=== PATIENT | male | born 1945 | race Caucasian/White ===

== ENCOUNTER 2021-02-09 09:20 | Emergency (ER) | payer MEDICARE, OTHER, SELFPAY ==
[2021-02-09 09:41] VITALS: TEMP 36.4; BMI 27.2
[2021-02-09 09:46] VITALS: BP 195/110; PULSE 60; RESP 16; O2SAT 93
--- NOTE | 2021-02-09 09:55 | W.ED.WOUNDLC ---
HPI - Wound/Laceration General: Chief Complaint: Wound/Laceration Stated Complaint: L ARM WOUND/LACERATION Time Seen by Provider: 02/09/21 09:28 History of Present Illness: HPI narrative: Patient is a 75-year-old male comes to the ED with a laceration on left arm. Patient says he was in his garage cleaning up some debris. He was trying to remove a bent metal track for her garage door and once he loosened one of the screws the metal track sprung up and hit patient in left forearm causing laceration. Patient unsure of last tetanus shot. Associated symptoms: Denies chills, fever(s), nausea or vomiting Review of Systems Const: Denies: fever(s), chills or fatigue Eyes: Denies: change in vision or eye discomfort ENMT: Denies: throat pain, odynophagia, nasal discharge or nasal congestion Card: Denies: chest pain, palpitations, edema, swelling of feet/ankles, dyspnea on exertion or orthopnea Resp: Denies: dyspnea, productive cough or non-productive cough GI: Denies: abdominal pain, nausea, vomiting, diarrhea, constipation or hematochezia : Denies: flank pain, difficulty urinating, dysuria or hematuria Musc: Denies: neck pain, back pain or extremity swelling Skin/Breast: Reports: new lesions (laceration to left arm); Denies: rash Neuro: Denies: headache(s), numbness in extremities or weakness in extremities [facility] PFSH: Medical History Erectile dysfunction Family history of prostate cancer HTN (hypertension) Family History Father Cancer PROSTATE CANCER Mother Diabetes Hypertension Social History Smoking and tobacco status: never smoked Alcohol intake: current Alcohol intake frequency: holidays/special occasions only Adopted: No Caregiver/support person: No Lives independently: No Household members: spouse Marital status: Current occupational status: retired Physical Exam Const: COMMON NORMALS: no acute distress, patient oriented x3, healthy appearing and alert GENERAL APPEARANCE: cooperative and comfortable HENMT: COMMON NORMALS: normocephalic HEAD & SCALP: normocephalic MOUTH: Normal oral and palatal mucosa present THROAT: posterior oropharynx normal and uvula midline Neck/C-Spine: COMMON NORMALS: supple GENERAL: Yes normal visual inspection Resp: COMMON NORMALS: normal respiratory effort, No retractions, No use of accessory muscles and clear to auscultation bilaterally AUSCULTATION: clear to auscultation bilaterally Cardio: COMMON NORMALS: regular rate, regular rhythm, S1 normal heart sound present, S2 normal heart sound present, No gallops present (Cardio), No clicks present (Cardio), No murmurs present (Cardio) and Peripheral pulses 2+ throughout RATE: regular rate RHYTHM: regular rhythm HEART SOUNDS: S1 normal heart sound present and S2 normal heart sound present PERIPHERAL PULSES: Peripheral pulses 2+ throughout GI: COMMON NORMALS: Normal to inspection, nondistended, normoactive bowel sounds present, Soft to palpation, non-tender and no masses PALPATION: Yes Soft to palpation : COMMON NORMALS: Yes no CVA tenderness BLADDER/KIDNEY EXAM: Yes no CVA tenderness Back/Pelvis: COMMON NORMALS: no CVA tenderness Extremity: NARRATIVE EXTREMITY EXAM: Laceration on left forearm?superficial 10 cm linear laceration on anterior aspect of forearm. Minimal active bleeding. Noncontaminated. GENERAL: Yes normal exam except as noted Neuro: COMMON NORMALS: patient oriented x3 and moves all extremities SENSORIUM/ORIENTATION: Yes alert Skin: NARRATIVE SKIN EXAM: Laceration on left forearm?superficial 10 cm linear laceration on anterior aspect of forearm. Minimal active bleeding. Noncontaminated. GENERAL SKIN EXAM: dry skin Procedures Laceration Laceration 1: Site: upper extremity (forearm) Side (If applicable): left Size (cm): 10 Description: linear and clean Depth: simple, single layer Local Anesthetic: lidocaine 1% and with epi Amount of anesthesia used (mL): 20 Pre-repair: irrigated extensively (With normal saline and cleaned with CHG swab.) Skin layer closed with: vicryl Size (cm): 4-0 (10 vicryl sutures) and 5-0 (10 ethicon sutures) Number of sutures: 20 Technique: simple, interrupted Course Vital Signs: Vital signs: Vital Signs Temperature 97.5 F L 02/09/21 09:41 Pulse Rate 60 02/09/21 09:46 Respiratory Rate 18 02/09/21 11:44 Blood Pressure 195/110 02/09/21 09:46 Pulse Oximetry 93 04/30/21 09:46 MDM - Wound/Laceration MDM Narrative: Medical decision making narrative: Patient is a 75-year-old male who comes to the ED with laceration to forearm. Laceration was irrigated extensively with normal saline and then skin was cleaned with CHG swab. Lidocaine 1% with epi was used as local. 20 sutures were then used to close up laceration. Patient was given updated tetanus shot and then laceration site was bandaged up and he was sent home with a prophylactic prescription of cephalexin. He was instructed on laceration care. Follow-up in 10 days to have sutures removed. Return to ED precautions given. Patient understood and agree with plan. Discharge Plan Discharge Patient Disposition: Home Clinical Impression: Laceration Condition: Stable Prescriptions: New cephalexin 500 mg capsule 500 mg PO Q6H 3 Days Qty: 12 RF: 0 No Action losartan 25 mg tablet 12.5 mg PO DAILY RF: 0 magnesium 200 mg tablet 200 mg PO DAILY RF: 0 flaxseed oil 1,000 mg capsule 1,000 mg PO DAILY RF: 0 red yeast rice 600 mg tablet 600 mg PO DAILY RF: 0 omega-3 fatty acids [Fish Oil Concentrate] 1,000 mg capsule 1,000 mg PO DAILY RF: 0 Discharge Orders: Discharge ED (Routine); Ordered 02/09/21 Ordered By: Dragan Quiroz Referrals: Cesar Day DO [Primary Care Provider] - Discharge Diet: Regular Discharge Activity: Limit activity as instructed Patient Instructions: Suture Care (ED), Laceration (ED) Activity Restrictions/Additional Instructions: Take full course of antibiotics as prescribed. Keep laceration site clean and dry for the next 48 hours. Then after that you can clean and re-bandage daily. Watch for signs of infection such as redness, warmth, increased tenderness and puslike drainage. If you see the signs of infection return to the ED, urgent care or PCP for reevaluation. call your PCP to schedule a follow-up appointment for reevaluation and suture removal in about 10 days. Continue taking all home meds. Follow discharge plans as discussed. You can return to the ED if symptoms worsen. Coding Level of Care Code ED Speedometer Inspector for Marielena Fwd Exam Comprehensive
[2021-02-09 11:44] VITALS: RESP 18
[2021-02-09] MEDS: tetanus-dipt-pertussis 0.5 mL SDV IM (12:16)
== END 2021-02-09 12:23 | disposition home or self-care (01) ==
PROVIDERS: Emergency Provider Physician Assistant; PCP Family Medicine
DX: S51.812A Laceration without foreign body of left forearm, initial encounter (principal); W22.8XXA Striking against or struck by other objects, initial encounter; I10 Essential (primary) hypertension; Z23 Encounter for immunization
CPT/HCPCS: 12004; 90471; 90715; 99283

== ENCOUNTER → 2022-03-27 13:21 | Outpatient (BNVA) | payer MEDICARE, OTHER, SELFPAY | PROVIDERS: PCP Family Medicine; Visit Provider Family Medicine | DX: Z00.00 Encounter for general adult medical examination without abnormal findings (principal); E78.5 Hyperlipidemia, unspecified; E53.8 Deficiency of other specified B group vitamins; E11.9 Type 2 diabetes mellitus without complications; E03.8 Other specified hypothyroidism; M10.9 Gout, unspecified | CPT/HCPCS: 80053; 80061; 82607; 83036; 84443; 84550; 85025 ==

== ENCOUNTER 2022-07-22 11:03 | Outpatient (CLI) | payer MEDICARE, OTHER, SELFPAY | END 2022-07-22 11:04 | disposition home or self-care (01) | LOC: LAB 11:08 | PROVIDERS: PCP Family Medicine; Visit Provider Urology | DX: Z12.5 Encounter for screening for malignant neoplasm of prostate (principal) | CPT/HCPCS: 36415; G0103 ==

== ENCOUNTER → 2022-07-30 08:40 | Outpatient (BNVA) | payer MEDICARE, OTHER, SELFPAY | PROVIDERS: PCP Family Medicine; Visit Provider Urology | DX: N40.1 Benign prostatic hyperplasia with lower urinary tract symptoms (principal); Z12.5 Encounter for screening for malignant neoplasm of prostate; Z80.42 Family history of malignant neoplasm of prostate | CPT/HCPCS: 81003; 99213 ==

== ENCOUNTER → 2023-04-21 09:25 | Outpatient (BNVA) | payer MEDICARE, OTHER, SELFPAY | PROVIDERS: PCP Family Medicine; Visit Provider Family Medicine | DX: Z00.00 Encounter for general adult medical examination without abnormal findings (principal); H91.92 Unspecified hearing loss, left ear; I10 Essential (primary) hypertension; E03.9 Hypothyroidism, unspecified | CPT/HCPCS: 80053; 80061; 82607; 84443; 85025 ==

== ENCOUNTER → 2024-04-22 08:40 | Outpatient (BNVA) | payer MEDICARE, OTHER, SELFPAY | PROVIDERS: PCP Family Medicine; Visit Provider Family Medicine | DX: Z00.00 Encounter for general adult medical examination without abnormal findings (principal); Z12.5 Encounter for screening for malignant neoplasm of prostate; I10 Essential (primary) hypertension; E55.9 Vitamin D deficiency, unspecified; E03.9 Hypothyroidism, unspecified; N40.1 Benign prostatic hyperplasia with lower urinary tract symptoms; H91.92 Unspecified hearing loss, left ear | CPT/HCPCS: 80053; 80061; 82607; 82652; 84153; 84443; 85025 ==

== ENCOUNTER 2024-05-13 08:55 | Outpatient (CLI) | payer MEDICARE, OTHER, SELFPAY ==
--- NOTE | 2024-05-13 09:15 | USCV_ITS ---
Geronimo De La Rosa Age: 78 Gender: M : 1945 Exam Date: 05/13/2024 09:05 Ordering Phys: Cesar Day DO Technologist: Exam Location: [facility] Indication: murmur BP: 130 / 80 HR: 64 Rhythm: Sinus Technical Quality: Adequate MEASUREMENTS (Male / Female) Normal Values 2D ECHO LV Diastolic Diameter PLAX 5.0 cm 4.2 - 5.9 / 3.9 - 5.3 cm IVS Diastolic Thickness 1.2 cm 0.6 - 1.0 / 0.6 - 0.9 cm IVS Systolic Thickness 1.8 cm LVPW Diastolic Thickness 1.3 cm 0.6 - 1.0 / 0.6 - 0.9 cm LVPW Systolic Thickness 2.0 cm LVOT Diameter 2.1 cm LV Ejection Fraction 2D Teich 64.0 % LV Ejection Fraction MOD 4C 70.3 % LV Ejection Fraction MOD 2C 57.3 % LV Ejection Fraction 2C AL 56.5 % LA Diameter 3.6 cm RA Systolic Volume 4C AL 86.4 ml RA Systolic Volume 4C MOD 84.0 ml LA Sys Volume AL 81.5 cm cubed LA Sys Volume Index AL 39.2 cm cubed/m squared Aorta at Sinotubular Diameter 2.7 cm IVC Diameter 2.3 cm M-MODE LA Ao Ratio MM 1.1 AV Cusp Separation MM 2.9 cm DOPPLER AV Peak Velocity 173.0 cm/s LVOT Peak Velocity 101.0 cm/s AV Area Cont Eq vti 1.9 cm squared AV Area Cont Eq pk 1.9 cm squared MV Area PHT 3.2 cm squared Mitral E to A Ratio 0.8 TV Peak Velocity 215.5 cm/s TR Peak Velocity 263.0 cm/s TR Peak Gradient 27.7 mmHg TV Peak E Velocity 101.0 cm/s Right Atrial Pressure 3.0 mmHg Pulmonary Artery Systolic Pressu 30.7 mmHg PV Peak Velocity 124.0 cm/s FINDINGS Left Ventricle Left ventricle is normal size. LV systolic function is normal with EF of 55 to 60%. No regional wall motion abnormalities are seen. Moderate LVH is seen. Grade 1 diastolic dysfunction. Right Ventricle Normal in size and function Right Atrium Dilated Left Atrium Dilated Mitral Valve Moderate mitral valve prolapse. Mild to moderate mitral regurgitation. Aortic Valve Structurally normal aortic valve. No significant stenosis or regurgitation. Tricuspid Valve Mild tricuspid regurgitation. Pulmonary artery systolic pressure is normal. Pulmonic Valve Mild pulmonic regurgitation. Pericardium Normal Aorta Normal in size IVC Appears to be dilated CONCLUSIONS LV systolic function is normal with EF of 55-60% Moderate LVH Grade 1 diastolic dysfunction Moderate mitral valve prolapse. Mild to moderate mitral regurgitation Mild tricuspid regurgitation Mild pulmonic regurgitation IVC appears to be dilated Compared to prior echocardiogram from 2015, no significant changes are seen. Hunter Means MD (Electronically Signed) Final Date: 26 May 2024 17:32 S
== END 2024-05-13 08:56 | disposition home or self-care (01) ==
LOC: RAD 08:55
PROVIDERS: PCP Family Medicine; Visit Provider Family Medicine
DX: I34.1 Nonrheumatic mitral (valve) prolapse (principal); I51.7 Cardiomegaly; I50.30 Unspecified diastolic (congestive) heart failure; I34.0 Nonrheumatic mitral (valve) insufficiency; R01.1 Cardiac murmur, unspecified
CPT/HCPCS: 80053; 80061; 82607; 82652; 84153; 84443; 85025; 93306

== ENCOUNTER 2025-04-22 07:12 | Outpatient (CLI) | payer MEDICARE, OTHER, SELFPAY ==
[2025-04-22 08:29] LABS: Hematocrit 47.3 % (37-53); Hemoglobin 16.20 g/dL (11.27-16.99); Mean Corpuscular HGB Conc 34.2 g/dL (30-55); Mean Corpuscular Hemoglobin 31.6 pg (27-33); Mean Corpuscular Volume 92.4 fl (82-101); Nucleated Red Blood Cells % 0 %; Platelet Count 164 10^3/cmm (157-399); Red Blood Count 5.12 10^6/uL (3.85-5.65); White Blood Count 4.65 10^3/uL (3.29-11.43)
[2025-04-22 08:43] LABS: Glucose Urine UA Negative (Normal); Nitrate Urine Negative (Negative); Specific Gravity, Urine 1.006 (1.005-1.030)
[2025-04-22 08:46] LABS: Add Urine Microscopic? YES
[2025-04-22 09:12] LABS: Alanine Aminotransferase 21 U/L (0-41); Albumin Level 4.1 g/dL (3.5-5.2); Alkaline Phosphatase 61 U/L (40-130); Anion Gap 17.4 (5-19); Aspartate Amino Transferase 22 U/L (0-40); Blood Urea Nitrogen 22 mg/dL (8-23); Calcium 8.8 mg/dL (8.5-10.5); Carbon Dioxide 24 mmol/L (22-29); Chloride 106 mmol/L (98-107); Cholesterol 196 mg/dL (0-200); Globulin 2.4 g/dL (1.3-4.6); Glucose 90 mg/dL (65-115); HDL Cholesterol 58 mg/dL (60-100); Osmolality Calculated 299 mOsm/kg (285-295); Potassium 4.4 mmol/L (3.5-5.1); Sodium 143 mmol/L (136-145); Thyroid Stimulating Hormone 1.67 uIU/mL (0.27-4.20); Total Protein 6.5 g/dL (6.6-8.7); Triglycerides 80 mg/dL (0-150); VLDL Cholestrol Calculation 16 mg/dL (0-30); Vitamin B12 413 pg/mL (232-1245)
== END 2025-04-22 07:13 | disposition home or self-care (01) ==
LOC: LAB 07:14
PROVIDERS: PCP Family Medicine; Visit Provider Family Medicine
DX: Z00.00 Encounter for general adult medical examination without abnormal findings (principal); I10 Essential (primary) hypertension; I34.1 Nonrheumatic mitral (valve) prolapse; N40.1 Benign prostatic hyperplasia with lower urinary tract symptoms; E03.9 Hypothyroidism, unspecified; N39.0 Urinary tract infection, site not specified
CPT/HCPCS: 36415; 80053; 80061; 81001; 82306; 82607; 84443; 85025

== ENCOUNTER → 2025-06-09 15:19 | Outpatient (BNVA) | payer MEDICARE, OTHER, SELFPAY | PROVIDERS: PCP Family Medicine; Visit Provider Internal Medicine Cardiovascular Disease | DX: R00.1 Bradycardia, unspecified (principal) | CPT/HCPCS: 93005 ==

== ENCOUNTER 2025-07-11 06:28 | Outpatient (CLI) | payer MEDICARE, OTHER, SELFPAY | END 2025-07-11 06:29 | disposition home or self-care (01) | LOC: RAD 06:29 | PROVIDERS: PCP Family Medicine; Visit Provider Internal Medicine Cardiovascular Disease | DX: I34.1 Nonrheumatic mitral (valve) prolapse (principal); R07.9 Chest pain, unspecified | CPT/HCPCS: C8929 ==